=== PATIENT | male | born 1975 | race Caucasian/White ===

== ENCOUNTER 2019-02-01 13:22 | Emergency (ER) | payer OTHER, SELFPAY ==
[2019-02-01 13:31] VITALS: BP 139/99; PULSE 78; RESP 18; TEMP 36.9; O2SAT 95
--- NOTE | 2019-02-01 14:02 | NUR.NOTE ---
at bedside for wound suture lac repair Nursing Note:
--- NOTE | 2019-02-01 14:32 | W.ED.GENAD ---
Discharge Plan Disposition Patient Disposition: HOME Condition: Stable Discharge Details Chief Complaint: Laceration Clinical Impression: Laceration of finger of left hand Primary Care Provider: Tonia Hernandez ED Provider: Prem Patel Home Meds and New Rx's Prescriptions: No Action bupropion HCl [Wellbutrin XL] 150 mg tablet extended release 24 hr 150 mg PO QAM Qty: 30 RF: 4 nicotine [Nicoderm CQ] 21 mg/24 hr patch 24 hour 1 patch TD DAILY Qty: 21 RF: 2 amlodipine 10 mg tablet 10 mg PO DAILY Qty: 90 RF: 3 lisinopril 20 mg tablet 20 mg PO DAILY Qty: 90 RF: 3 triamcinolone acetonide [Nasacort] 55 mcg aerosol,spray 1 spray CECIL DAILY Qty: 16.9 RF: 6 multivitamin [Daily Vitamin] 1 EACH tablet 1 ea PO DAILY RF: 0 omega-3 fatty acids-fish oil 1 EACH capsule 1 ea PO DAILY RF: 0 cholecalciferol (vitamin D3) 50,000 UNIT capsule 50,000 unit PO once weekly Qty: 8 RF: 0 Discharge Instructions Instructions: Care For Your Stitches (ED), Finger Laceration (ED), Skin Adhesive Care (ED) Additional Instructions: Please keep wound clean and dry and return to emergency department for any new or significant worsening of symptoms including any signs of infection. Otherwise return to ER in 10 days for suture removal. Referrals: [facility] Emergency Dept. [Outside] (Return in 10 days for suture removal) Discharge Data Discharge Date/Time-TO BE ENTERED AT DEPARTURE: 02/01/19 14:45 Medical Decision Making 2 cm laceration to left index finger 1 hour prior to arrival. Patient has full sensation movement and cap refill intact. Digital block technique performed and thorough irrigation. Wound was visualized to base in bloodless field and is into subcutaneous tissue but no sign of muscular bone or tendon involvement. #1 [id number] suture placed and #1 simple interrupted due to significant continued oozing bleeding even after sutures placed decision to use glue around sutures. Patient tolerated procedure well with unfortunately suboptimal anesthetic. Return precautions discussed after discussion of diagnosis and plan of care patient has no further needs, questions, or concerns and states clear understanding to return to the emergency department for any worsening symptoms. Tdap was updated. HPI General Mode of arrival: ambulatory. Date/Time Provider Initiated Documentation: 02/01/19 13:43. Limitations to Documentation: no limitations. Information obtained by: patient and RN notes reviewed. History of Present Illness 43 year old M presents to the emergency department with the chief complaint of Left index finger laceration, described as mild, with intensity rated at 2. Quality is described as sharp, and is localized to the left and upper extremity. Patient started experiencing this hour(s) (1) and it has been constant. Patient notes no other symptoms.. Patient did receive the following treatments prior to arrival, none Related Data Home Medications Medication Instructions Recorded Confirmed multivitamin [Daily Vitamin] 1 ea PO DAILY 04/03/13 02/03/19 omega-3 fatty acids-fish oil 1 ea PO DAILY 04/03/13 02/03/19 cholecalciferol (vitamin D3) 50,000 unit PO once weekly #8 cap 10/22/16 02/03/19 amlodipine 10 mg tablet 10 mg PO DAILY #90 tab-cap 12/17/18 02/03/19 bupropion HCl 150 mg 24 hr tablet, 150 mg PO QAM #30 tab 12/17/18 02/03/19 extended release lisinopril 20 mg tablet 20 mg PO DAILY #90 tab-cap 12/17/18 02/03/19 nicotine 21 mg/24 hr daily 1 patch TD DAILY #21 each 12/17/18 02/03/19 transdermal patch triamcinolone acetonide 55 mcg 1 spray CECIL DAILY #16.9 ml 02/03/19 02/03/19 nasal spray aerosol Previous Rx's Medication Instructions Recorded amlodipine 10 mg tablet 10 mg PO DAILY #90 tab-cap 12/17/18 bupropion HCl 150 mg 24 hr tablet, 150 mg PO QAM #30 tab 12/17/18 extended release lisinopril 20 mg tablet 20 mg PO DAILY #90 tab-cap 12/17/18 nicotine 21 mg/24 hr daily 1 patch TD DAILY #21 each 12/17/18 transdermal patch triamcinolone acetonide 55 mcg 1 spray CECIL DAILY #16.9 ml 02/03/19 nasal spray aerosol Allergies Allergy/AdvReac Type Severity Reaction Status Date / Time Penicillins Allergy Mild DIZZY-BLACK Verified 02/03/19 08:04 OUTS chlorpheniramine Allergy Unknown Verified 02/03/19 08:04 General Stated Complaint: Laceration CHARLIE: 4 Review of Systems Cardiovascular Denies syncope and Denies lightheadedness Musculoskeletal Denies deformity, Denies limited range of motion and Denies numbness Integumentary/Breasts Reports as per HPI Neurologic Denies syncope, Denies numbness and Denies paresthesias [facility] Family History Mother No problems noted. Father Essential hypertension Sister No problems noted. Maternal Grandfather Cancer Paternal Grandfather No problems noted. Maternal Grandmother No problems noted. Paternal Grandmother No problems noted. Social History Smoking/Tobacco Use Status: Current-Occasional Tobacco Type: cigarettes Tobacco: How many years used: 25 Quit status: considering quitting (Has quit before/pps) Alcohol Intake: current Alcohol Intake frequency: holidays/special occasions only Alcohol type: beer and hard liquor Drug use: Never Substance use type: does not use Caregiver/Support person: No Household members: significant other, family and children Housing: house Communication Needs: None Do you need help understanding health information?: Never Pets and animals: Yes Pets and animals: dog(s) Sexually active: Yes Do you think of yourself as: straight/heterosexual Current gender identity: male What is your relationship status?: living with partner How often do you talk on the phone with friends or family?: three or more times per week How often do you get together with friends or relatives?: three or more times per week How often do you attend orthodoxy or islam services?: decline to answer Do you belong to any clubs or organized social groups?: decline to answer Panel score (0-1 are the most socially isolated patients): 2 What type of physical activity do you participate in: decline to answer Duration: decline to answer Frequency: decline to answer Sera/Alevism: No preference Special sera needs: No Seatbelt use: always Drive 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 Do you feel safe at home: Yes Exam Const General: cooperative and no acute distress Orientation: alert, awake and oriented x3 Limitations: mental status not altered Resp Effort & Inspection: normal respiratory effort and able to speak in complete sentences Cardio Rate: regular rate Rhythm: regular rhythm Skin Trauma: laceration left 2nd finger linear, actively bleeding, involves subcutaneous tissue, motor nerve function intact and sensation intact; no foreign bodies present and not contaminated Neuro General: alert, awake, oriented x3, gait normal, tone normal, moves all extremities, normal light touch, pain and propioception and no focal motor deficits Motor: no movement abnormalities noted Sensory Exam: no sensory deficits noted Course Vital Signs Temperature 36.9 C 02/01/19 13:31 Pulse 78 02/01/19 13:31 Respiratory Rate 18 02/01/19 13:31 Blood Pressure 139/99 H 02/01/19 13:31 Pulse Oximetry 95 02/01/19 13:31 Temperature 36.9 C 02/01/19 13:31 Temperature Source Skin 02/01/19 13:31 Pulse 78 02/01/19 13:31 Respiratory Rate 18 02/01/19 13:31 Respiratory Effort Non-Labored 02/01/19 13:43 Blood Pressure 139/99 H 02/01/19 13:31 Blood Pressure Position Sitting 02/01/19 13:31 Pulse Oximetry 95 02/01/19 13:31 Oxygen Delivery Method Room Air 02/01/19 13:31 Oxygen Flow Rate 0 02/01/19 13:31 Pain Level 2 02/01/19 13:31
== END 2019-02-01 14:45 | disposition home or self-care (01) ==
PROVIDERS: Emergency Provider Nurse Practitioner Family; PCP Internal Medicine
DX: S61.211A Laceration without foreign body of left index finger without damage to nail, initial encounter (principal); W26.0XXA Contact with knife, initial encounter
CPT/HCPCS: 12001; 90471

== ENCOUNTER 2019-02-11 16:45 | Emergency (ER) | payer OTHER, SELFPAY ==
[2019-02-11 16:47] VITALS: BP 132/87; PULSE 68; RESP 16; TEMP 36.7; O2SAT 96
--- NOTE | 2019-02-11 16:54 | ED.GENADUL_ITS ---
Discharge Plan Disposition Patient Disposition: HOME Condition: Good Discharge Details Chief Complaint: SutureRem Clinical Impression: Encounter for removal of sutures Primary Care Provider: Tonia Hernandez ED Provider: Prem Patel Home Meds and New Rx's Prescriptions: No Action bupropion HCl [Wellbutrin XL] 150 mg tablet extended release 24 hr 150 mg PO QAM Qty: 30 RF: 4 nicotine [Nicoderm CQ] 21 mg/24 hr patch 24 hour 1 patch TD DAILY Qty: 21 RF: 2 amlodipine 10 mg tablet 10 mg PO DAILY Qty: 90 RF: 3 lisinopril 20 mg tablet 20 mg PO DAILY Qty: 90 RF: 3 triamcinolone acetonide [Nasacort] 55 mcg aerosol,spray 1 spray CECIL DAILY Qty: 16.9 RF: 6 multivitamin [Daily Vitamin] 1 EACH tablet 1 ea PO DAILY RF: 0 omega-3 fatty acids-fish oil 1 EACH capsule 1 ea PO DAILY RF: 0 cholecalciferol (vitamin D3) 50,000 UNIT capsule 50,000 unit PO once weekly Qty: 8 RF: 0 Discharge Instructions Instructions: Acute Wound Care (ED), Steristrips (ED) Additional Instructions: Return to the emergency department for any signs of infection otherwise keep wound clean and dry. Referrals: Tonia Hernandez MD [Primary Care Provider] - (As needed) Medical Decision Making Patient presenting the emergency department for chief complaint of suture removal. Patient had [id number] suture and simple interrupted suture placed by myself on the left index finger approximately 10 days ago. Wound is healing well with no signs of infection, dehiscence, or complications. Sutures were removed without incident. Patient does state that he has a shooting competition coming up this weekend and given some healing process that I feel may open up with repetitive use 2 Steri-Strips were placed to help keep wound edges well approximated. Return precautions were discussed. After discussion of diagnosis and plan of care patient has no further needs, questions, or concerns and states clear understanding to return to the emergency department for any worsening symptoms. HPI General Mode of arrival: ambulatory . Date/Time Provider Initiated Documentation: 02/11/19 16:46 . Limitations to Documentation: no limitations . Information obtained by: patient, RN notes reviewed and old records reviewed . History of Present Illness 43 year old M presents to the emergency department with the chief complaint of Suture removal, Patient started experiencing this day(s) (10) Patient notes no other symptoms.. Related Data Home Medications Medication Instructions Recorded Confirmed multivitamin [Daily Vitamin] 1 ea PO DAILY 04/03/13 02/03/19 omega-3 fatty acids-fish oil 1 ea PO DAILY 04/03/13 02/03/19 cholecalciferol (vitamin D3) 50,000 unit PO once weekly #8 cap 10/22/16 02/03/19 amlodipine 10 mg tablet 10 mg PO DAILY #90 tab-cap 12/17/18 02/03/19 bupropion HCl 150 mg 24 hr tablet, 150 mg PO QAM #30 tab 12/17/18 02/03/19 extended release lisinopril 20 mg tablet 20 mg PO DAILY #90 tab-cap 12/17/18 02/03/19 nicotine 21 mg/24 hr daily 1 patch TD DAILY #21 each 12/17/18 02/03/19 transdermal patch triamcinolone acetonide 55 mcg 1 spray CECIL DAILY #16.9 ml 02/03/19 02/03/19 nasal spray aerosol Previous Rx's Medication Instructions Recorded amlodipine 10 mg tablet 10 mg PO DAILY #90 tab-cap 12/17/18 bupropion HCl 150 mg 24 hr tablet, 150 mg PO QAM #30 tab 12/17/18 extended release lisinopril 20 mg tablet 20 mg PO DAILY #90 tab-cap 12/17/18 nicotine 21 mg/24 hr daily 1 patch TD DAILY #21 each 12/17/18 transdermal patch triamcinolone acetonide 55 mcg 1 spray CECIL DAILY #16.9 ml 02/03/19 nasal spray aerosol Allergies Allergy/AdvReac Type Severity Reaction Status Date / Time Penicillins Allergy Mild DIZZY-BLACK Verified 02/03/19 08:04 OUTS chlorpheniramine Allergy Unknown Verified 02/03/19 08:04 General Stated Complaint: SutureRem CHARLIE: 5 Review of Systems Constitutional Denies chills and Denies fever(s) Musculoskeletal Denies arthralgias Integumentary/Breasts Denies rash and Denies skin swelling PFSH Social History Smoking/Tobacco Use Status: Current-Occasional Tobacco Type: cigarettes Tobacco: How many years used: 25 Quit status: considering quitting (Has quit before/pps) Alcohol Intake: current Alcohol Intake frequency: holidays/special occasions only Alcohol type: beer and hard liquor Drug use: Never Substance use type: does not use Caregiver/Support person: No Household members: significant other, family and children Housing: house Communication Needs: None Do you need help understanding health information?: Never Pets and animals: Yes Pets and animals: dog(s) Sexually active: Yes Do you think of yourself as: straight/heterosexual Current gender identity: male What is your relationship status?: living with partner How often do you talk on the phone with friends or family?: three or more times per week How often do you get together with friends or relatives?: three or more times per week How often do you attend jainism or christianity services?: decline to answer Do you belong to any clubs or organized social groups?: decline to answer Panel score (0-1 are the most socially isolated patients): 2 What type of physical activity do you participate in: decline to answer Duration: decline to answer Frequency: decline to answer Sera/Evangelical: No preference Special sera needs: No Seatbelt use: always Drive 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 Do you feel safe at home: Yes Exam Const General: cooperative, comfortable and no acute distress Orientation: alert, awake and oriented x3 Skin Rashes: no rashes Trauma: laceration (Left index finger without erythema, purulence, or dehiscence) Course Vital Signs Temperature 36.7 C 02/11/19 16:47 Pulse 68 02/11/19 16:47 Respiratory Rate 16 02/11/19 16:47 Blood Pressure 132/87 02/11/19 16:47 Pulse Oximetry 96 02/11/19 16:47 Temperature 36.7 C 02/11/19 16:47 Temperature Source Skin 02/11/19 16:47 Pulse 68 02/11/19 16:47 Respiratory Rate 16 02/11/19 16:47 Respiratory Effort Non-Labored 02/11/19 16:48 Blood Pressure 132/87 02/11/19 16:47 Blood Pressure Position Sitting 02/11/19 16:47 Pulse Oximetry 96 02/11/19 16:47 Oxygen Delivery Method Room Air 02/11/19 16:47 Oxygen Flow Rate 0 02/11/19 16:47
[2019-02-11 16:59] VITALS: BP 132/87; PULSE 68; RESP 16; TEMP 36.7; O2SAT 96
== END 2019-02-11 17:02 | disposition home or self-care (01) ==
PROVIDERS: Emergency Provider Nurse Practitioner Family; PCP Internal Medicine
DX: S61.211D Laceration without foreign body of left index finger without damage to nail, subsequent encounter (principal); W26.0XXD Contact with knife, subsequent encounter; Z48.02 Encounter for removal of sutures